=== PATIENT | female | born 1970 | race African-American/Black ===

== ENCOUNTER 2025-04-21 11:07 | Inpatient (IN) | payer OTHER ==
[~2025-04-21] VITALS: Ht 175.3 cm; Wt 99.3 kg
[2025-04-21] MEDS: IPRATROPIUM/ALBUTEROL 0.5-3(2.5)MG/3ML NEB HHN STA (12:04)
[2025-04-21 12:05] VITALS: PULSE 101; RESP 22; O2SAT 100
[2025-04-21] MEDS: IPRATROPIUM/ALBUTEROL 0.5-3(2.5)MG/3ML NEB HHN SCH (12:07)
[2025-04-21 12:30] LABS: BASOPHILS % 1.5 % (0.0-2.0); EOSINOPHILS % 3.2 % (0.0-5.0); HEMATOCRIT. 42.8 % (36.0-48.0); HEMOGLOBIN. 14.2 g/dL (12.0-16.0); LYMPHOCYTES % 47.4 % (20.0-50.0); MEAN PLATELET VOLUME 9.5 fl (7.4-10.4); MONOCYTES % 6.8 % (2.0-8.0); NEUTROPHILS % 41.1 % (40.0-76.0); PLATELET 258 x1000/uL (130-400); RED BLOOD CELL COUNT 5.00 mill/uL (4.2-5.4); RED CELL DISTRIBUTION WIDTH 13.7 % (11.6-14.6)
[2025-04-21 12:42] LABS: CREATININE 1.3 mg/dL (0.6-1.0); UREA NITROGEN BLOOD 9.0 mg/dL (9-23)
[2025-04-21] MEDS: PREDNISONE 20MG TABLET PO ONE (13:23)
[2025-04-21] MEDS: ALBUTEROL (0.083%) 2.5MG/3ML NEB HHN SCH (13:30)
[2025-04-21 13:32] VITALS: PULSE 116; RESP 22; O2SAT 98
[2025-04-21 13:36] LABS: TROPONIN I HIGH SENSITIVITY 67 ng/L (3.0-34)
[2025-04-21] MEDS: DEXAMETHASONE 0.5MG/5ML ORAL SYR PO ONE ×2 (14:19)
[2025-04-21] MEDS: DEXAMETHASONE 4MG TABLET PO SCH (14:20)
[2025-04-21] MEDS: ACETAMINOPHEN 325MG TABLET PO ONE (15:28)
[2025-04-21] MEDS ORDERED: AZIT250T12 PO (16:55)
[2025-04-21] MEDS: BENZONATATE 200MG CAPSULE PO ONE (17:09)
[2025-04-21] MEDS: AZITHROMYCIN 500 MG TABLET PO ONE (17:13)
[2025-04-21] MEDS ORDERED: AMLO5TAB6 PO (17:18)
[2025-04-21 17:39] LABS: TROPONIN I HIGH SENSITIVITY 45 ng/L (3.0-34)
[2025-04-21] MEDS: HYDRALAZINE 20MG/ML VIAL IV ONE (19:19)
[2025-04-21] MEDS ORDERED: DOCUSATE SODIUM 100MG CAPSULE PO PRN (21:30)
[2025-04-21] MEDS ORDERED: IPRATROPIUM/ALBUTEROL 0.5-3(2.5)MG/3ML NEB HHN PRN (21:30)
[2025-04-21] MEDS ORDERED: ACETAMINOPHEN 325MG TABLET PO PRN (21:30)
[2025-04-21] MEDS ORDERED: ONDANSETRON HCL 4MG/2ML INJ IV PRN (21:30)
[2025-04-21] MEDS ORDERED: DEXTROSE 50% WATER 50ML SYRINGE IV PRN (21:45)
[2025-04-21] MEDS: PANTOPRAZOLE 40MG DR TABLET PO SCH (22:12)
[2025-04-21] MEDS: POTASSIUM CHLORIDE 20MEQ TABLET SR PO NR (22:12)
[2025-04-21] MEDS: ASPIRIN 81MG EC TABLET PO SCH (22:13)
[2025-04-21] MEDS: FUROSEMIDE 40MG/4ML VIAL IVP SCH (22:14)
[2025-04-21] MEDS: METHYLPREDNISOLONE SOD SUCC 40MG/ML (ACT-O-VIAL) IV SCH (22:14)
[2025-04-21] MEDS: NITROGLYCERIN 50MG PREMIX 250 ML IV PRN (22:29)
[2025-04-21 23:22] LABS: CLARITY URINE CLEAR (CLEAR); COLOR URINE YELLOW (YELLOW); GLUCOSE URINE NEGATIVE (NEGATIVE); KETONES URINE NEGATIVE (NEGATIVE); LEUKOCYTE ESTERASE URINE NEGATIVE (NEGATIVE); NITRITE URINE NEGATIVE (NEGATIVE); OCCULT BLOOD URINE NEGATIVE (NEGATIVE); PH URINE 7.0 (4.5-8.0); PROTEIN URINE NEGATIVE (NEGATIVE); SPECIFIC GRAVITY URINE 1.008 (1.005-1.030); UROBILINOGEN URINE 0.2 E.U./dL (0.2-1.0)
[2025-04-21 23:35] LABS: *AMPHETAMINES SCREEN URINE NEGATIVE (NEGATIVE); *BARBITURATES SCREEN URINE NEGATIVE (NEGATIVE); *BENZODIAZEPINES SCREEN URINE NEGATIVE (NEGATIVE); *COCAINE SCREEN URINE NEGATIVE (NEGATIVE); CANNABINOID URINE SCREEN NEGATIVE (NEGATIVE); ECSTASY MDMA SCREEN URINE NEGATIVE (NEGATIVE); METHADONE URINE SCREEN NEGATIVE (NEGATIVE); OPIATES URINE SCREEN NEGATIVE (NEGATIVE); PHENCYCLIDINE URINE SCREEN NEGATIVE (NEGATIVE)
[2025-04-22] VITALS (65 sets, daily range): BP systolic 99–200; BP diastolic 71–145; PULSE 82–132; RESP 13–32; TEMP 36.5–36.9; O2SAT 95–100
[2025-04-22] MEDS: HYDRALAZINE HCL 25MG TABLET PO SCH (00:13)
[2025-04-22] MEDS: ACETAMINOPHEN 325MG TABLET PO PRN (00:15)
[2025-04-22 01:11] LABS: PHOSPHORUS 1.7 mg/dL (2.5-4.9)
[2025-04-22 01:13] LABS: INR 1.1
[2025-04-22 04:15] LABS: TROPONIN I HIGH SENSITIVITY 67 ng/L (3.0-34)
[2025-04-22] MEDS: MAGNESIUM 2 G PREMIX 50 ML IV NR (05:46)
[2025-04-22] MEDS: SODIUM PHOSPHATE 20 MMOL in DEXT 5% WATER 243.3333 ML IV NR (06:15)
[2025-04-22] MEDS: LOSARTAN 50 MG TABLET PO SCH (06:17)
[2025-04-22] MEDS: BLOOD SUGAR DIAGNOSTIC STRIP TEST SCH (06:21)
[2025-04-22] MEDS: INSULIN LISPRO 100 UNITS/ML SUBCUT SCH (06:22)
[2025-04-22] MEDS: GUAIFENESIN 200MG/10ML SUGAR FREE UDC PO PRN (08:25)
[2025-04-22] MEDS: AMLODIPINE 5MG TABLET PO SCH (08:26)
[2025-04-22] MEDS: IPRATROPIUM/ALBUTEROL 0.5-3(2.5)MG/3ML NEB HHN SCH (08:39)
[2025-04-22] MEDS: POTASSIUM PHOSPHATE 30 MMOL in DEXT 5% WATER 490 ML IV ONE (10:34)
[2025-04-22] MEDS: MAGNESIUM 4 G PREMIX 100 ML IV SCH (10:34)
[2025-04-22] MEDS: HYDRALAZINE 20MG/ML VIAL IV PRN (17:51)
[2025-04-22 18:29] LABS: BASOPHILS % 0.1 % (0.0-2.0); EOSINOPHILS % 0.0 % (0.0-5.0); HEMATOCRIT. 41.4 % (36.0-48.0); HEMOGLOBIN. 13.3 g/dL (12.0-16.0); LYMPHOCYTES % 7.8 % (20.0-50.0); MEAN PLATELET VOLUME 9.8 fl (7.4-10.4); MONOCYTES % 6.1 % (2.0-8.0); NEUTROPHILS % 86.0 % (40.0-76.0); PLATELET 277 x1000/uL (130-400); RED BLOOD CELL COUNT 4.75 mill/uL (4.2-5.4); RED CELL DISTRIBUTION WIDTH 14.1 % (11.6-14.6)
[2025-04-22 19:07] LABS: CREATINE KINASE MB FRACTION 7.2 ng/mL (0.5-3.6)
[2025-04-22 19:10] LABS: CREATININE 1.6 mg/dL (0.6-1.0); PROTEIN TOTAL 7.7 g/dL (6.0-8.3)
[2025-04-22 19:11] LABS: LDL CHOLESTEROL 106 mg/dL (5-100); T4 FREE 1.52 ng/dL (0.89-1.76); TRIGLYCERIDE 90 mg/dL (0-150); UREA NITROGEN BLOOD 16 mg/dL (9-23)
[2025-04-22 19:12] LABS: ASPARTATE AMINOTRANSFERASE 31 IU/L (<34)
[2025-04-22 19:13] LABS: BILIRUBIN DIRECT 0.1 mg/dL (<=3.0); BILIRUBIN TOTAL 0.3 mg/dL (0.1-1.0)
[2025-04-22 19:31] LABS: TROPONIN I HIGH SENSITIVITY 128 ng/L (3.0-34)
[2025-04-22] MEDS: ENOXAPARIN 30MG/0.3ML SYR SUBCUT SCH (20:22)
[2025-04-22] MEDS: ATORVASTATIN CALCIUM 20MG TABLET PO SCH (20:24)
[2025-04-22] MEDS: HYDRALAZINE HCL 50MG TABLET PO SCH (21:28)
[2025-04-23] VITALS (98 sets, daily range): BP systolic 112–176; BP diastolic 64–142; PULSE 83–117; RESP 15–32; TEMP 36.2–37.1; O2SAT 97–100
[2025-04-23] MEDS: DIPHENHYDRAMINE 50MG CAPSULE PO NR (00:10)
[2025-04-23] MEDS: MORPHINE SULFATE 2 MG/ML INJ (NOT FOR IM USE) IV NR (01:29)
[2025-04-23 07:32] LABS: BASOPHILS % 0.2 % (0.0-2.0); EOSINOPHILS % 0.0 % (0.0-5.0); HEMATOCRIT. 40.2 % (36.0-48.0); HEMOGLOBIN. 13.3 g/dL (12.0-16.0); LYMPHOCYTES % 19.6 % (20.0-50.0); MEAN PLATELET VOLUME 10.1 fl (7.4-10.4); MONOCYTES % 3.9 % (2.0-8.0); NEUTROPHILS % 76.3 % (40.0-76.0); PLATELET 270 x1000/uL (130-400); RED BLOOD CELL COUNT 4.66 mill/uL (4.2-5.4); RED CELL DISTRIBUTION WIDTH 13.8 % (11.6-14.6)
[2025-04-23 07:35] LABS: CREATININE 1.3 mg/dL (0.6-1.0)
[2025-04-23 07:36] LABS: UREA NITROGEN BLOOD 17 mg/dL (9-23)
[2025-04-23 07:38] LABS: CREATINE KINASE MB FRACTION 5.4 ng/mL (0.5-3.6)
[2025-04-23 07:53] LABS: TROPONIN I HIGH SENSITIVITY 151 ng/L (3.0-34)
[2025-04-23] MEDS: NITROGLYCERIN 50MG PREMIX 250 ML IV PRN (08:44)
[2025-04-23] MEDS: BUDESONIDE 0.5MG/2ML NEB HHN SCH (11:08)
[2025-04-23] MEDS: NIFEDIPINE XL 60MG TAB PO SCH (19:35)
[2025-04-23] MEDS: GUAIFENESIN-DM 200MG-20MG/10ML UDC PO PRN (19:40)
[2025-04-23] MEDS: POTASSIUM CHLORIDE 20MEQ/PACKET PO SCH (19:41)
[2025-04-23] MEDS ORDERED: NALOXONE HCL 0.4MG/ML VIAL IV PRN (20:30)
[2025-04-23] MEDS: HYDROCODONE/ACETAMINOPHEN 5/325MG TABLET PO PRN (20:30)
[2025-04-23] MEDS: CEFTRIAXONE 1GM/50ML 50 ML IV SCH (21:22)
[2025-04-23] MEDS: DOXYCYCLINE 100MG/100ML 100 ML IV SCH (21:23)
[2025-04-24] VITALS (72 sets, daily range): BP systolic 99–170; BP diastolic 73–114; PULSE 68–112; RESP 12–28; TEMP 36.2–36.9; O2SAT 96–100
[2025-04-24 06:03] LABS: BASOPHILS % 0.6 % (0.0-2.0); EOSINOPHILS % 1.1 % (0.0-5.0); HEMATOCRIT. 45.3 % (36.0-48.0); HEMOGLOBIN. 14.5 g/dL (12.0-16.0); LYMPHOCYTES % 39.0 % (20.0-50.0); MEAN PLATELET VOLUME 10.0 fl (7.4-10.4); MONOCYTES % 6.7 % (2.0-8.0); NEUTROPHILS % 52.6 % (40.0-76.0); PLATELET 279 x1000/uL (130-400); RED BLOOD CELL COUNT 5.09 mill/uL (4.2-5.4); RED CELL DISTRIBUTION WIDTH 14.4 % (11.6-14.6)
[2025-04-24 06:40] LABS: CREATININE 1.1 mg/dL (0.6-1.0); UREA NITROGEN BLOOD 11 mg/dL (9-23)
[2025-04-24 07:47] LABS: INFLUENZA TYPE A Presumptive Negative (Pres. Neg.); INFLUENZA TYPE B Presumptive Negative (Pres. Neg.)
[2025-04-24 07:48] LABS: RESPIRATORY SYNCYTIAL VIRUS Not Detected (Not Detectd)
[2025-04-24] MEDS: PREDNISONE 20MG TABLET PO SCH (11:14)
[2025-04-24] MEDS: ACETYLCYSTEINE 200MG/ML 20% VIAL 4ML INH SCH (14:29)
[2025-04-25] VITALS (8 sets, daily range): BP systolic 138–158; BP diastolic 81–98; PULSE 80–107; RESP 15–20; TEMP 35.4–37.1; O2SAT 96–99
[2025-04-25] MEDS ORDERED: ASPI-1406 PO (15:59)
[2025-04-25] MEDS ORDERED: ATOR20TA PO (15:59)
[2025-04-25] MEDS ORDERED: HYDR50TA39 PO (15:59)
[2025-04-25] MEDS ORDERED: DOXY150T9 PO (15:59)
[2025-04-25] MEDS ORDERED: P20 PO (15:59)
[2025-04-25] MEDS ORDERED: PANT40TA51 PO (15:59)
[2025-04-25] MEDS ORDERED: TOPUD PO (15:59)
[2025-04-25] MEDS ORDERED: FURO40TA5 PO ×2 (15:59→16:37)
[2025-04-25] MEDS ORDERED: LOSA50TA41 PO (15:59)
[2025-04-25] MEDS ORDERED: ALBU18HF2 IH (15:59)
[2025-04-25] MEDS ORDERED: NIFE-32 PO (15:59)
[2025-04-25] MEDS ORDERED: FLUT1DIS3 INH (16:06)
[2025-04-25] MEDS ORDERED: POTA10CA93 PO (16:37)
[2025-04-25] MEDS ORDERED: IBUP-2028 PO (16:39)
[2025-04-25 16:46] LABS: PLATELET 290 x1000/uL (130-400); RED BLOOD CELL COUNT 5.06 mill/uL (4.2-5.4); RED CELL DISTRIBUTION WIDTH 14.1 % (11.6-14.6)
[2025-04-25 16:59] LABS: CREATININE 1.2 mg/dL (0.6-1.0)
[2025-04-25 17:00] LABS: UREA NITROGEN BLOOD 15.0 mg/dL (9-23)
[2025-04-26 11:38] LABS: METANEPHRINE PLASMA <25.0 pg/mL (0.0-88.0); NORMETANEPHRINE PLASMA 239.9 pg/mL (0.0-244.0)
== END 2025-04-25 18:30 | disposition home or self-care (01) | DRG 871 ==
LOC: ER 11:07 → MICUSO 19:27 → EDBEDREQTM 19:33 → EDBEDREQSVC 19:33 → EDBEDREQ 19:33 → EDBEDREQSVC 21:41 → EDBEDREQTM 21:41 → ENRESERV 04-22 04:31 → 5WST 04-24 16:37
PROVIDERS: ADMIT Internal Medicine; ATTEND Internal Medicine
DX: A41.9 Sepsis, unspecified organism (principal); I21.4 Non-ST elevation (NSTEMI) myocardial infarction; N17.0 Acute kidney failure with tubular necrosis; J18.9 Pneumonia, unspecified organism; I50.23 Acute on chronic systolic (congestive) heart failure; I16.1 Hypertensive emergency; N18.9 Chronic kidney disease, unspecified; E66.9 Obesity, unspecified; F10.10 Alcohol abuse, uncomplicated; I34.0 Nonrheumatic mitral (valve) insufficiency; E83.42 Hypomagnesemia; R73.9 Hyperglycemia, unspecified; I49.3 Ventricular premature depolarization; K59.00 Constipation, unspecified; I07.1 Rheumatic tricuspid insufficiency; E87.6 Hypokalemia; Z68.32 Body mass index [BMI] 32.0-32.9, adult; Z79.51 Long term (current) use of inhaled steroids; Z79.82 Long term (current) use of aspirin; Z79.899 Other long term (current) drug therapy
CPT/HCPCS: 36415; 70360; 71045; 76770; 80048; 80061; 80076; 80305; 81003; 82550; 82553; 82962; 83036; 83735; 83835; 83880; 84100; 84145; 84439; 84443; 84484; 85025; 85027; 85379; 87070; 87420; 87804; 93005; 93306; 93970; 94070; 94640; 94664; 94760; 97165; 98960; 99285; J0360; J0696; J1650; J1815; J1938; J2270; J2919; J3475; J3490; J7060; J7512; J7608; J7626; J8540; Q0163